=== PATIENT | male | born 1945 | race African-American/Black ===

== ENCOUNTER 2022-08-30 11:43 | Inpatient (IN) | payer MEDICARE, SELFPAY ==
[~2022-08-30 11:43] MED LIST: Iopamidol-370 76% 500 ML MDV (1 ML CHARGE) ONE
[2022-08-30 11:59] LABS: #Eosinphils 0.1 thou/uL (0.0-0.7); #Monocytes 0.4 thou/uL (0.11-0.59); #Neutrophils 2.6 thou/uL (1.40-6.50); %Basophils 0.4 % (0.0-1.0); %Eosinophils 1.9 % (0.0-10.0); %Lymphocytes 34.5 % (21.0-51.0); %Monocytes 7.6 % (0.0-10.0); %Neutrophils 55.4 % (42.0-75.0); Hemoglobin 13.1 g/dL (14.0-18.0); Mean Corpuscular HGB CONC 33.1 g/dL (32.0-36.0); Mean Corpuscular Hemoglobin 31.8 pg (27.0-31.0); Mean Corpuscular Volume 96.1 fl (78.0-98.0); Mean Platelet Volume 10.8 fL (7.4-10.4); Platelet Count 139 10x3/uL (130-400); RBC Distribution Width 13.2 % (11.5-14.5); Red Blood Cell (RBC) Count 4.12 mill/uL (4.70-6.10); White Blood Cell (WBC) Count 4.7 10x3/uL (4.8-10.8)
[2022-08-30 12:13] LABS: INR-International Normal Ratio 1.1; PTT 23.5 sec (22.9-36.1); Prothrombin Time 14.2 sec (12.0-14.7)
[2022-08-30 12:15] LABS: ALT (SGPT) 8 U/L (8-55); AST (SGOT) 16 U/L (5-34); Albumin 3.8 g/dL (3.4-4.8); Alkaline Phosphatase 77 U/L (40-110); Anion Gap 14 mmol/L (10-20); BUN (Urea Nitrogen) 13 mg/dL (8.4-25.7); Bilirubin, Total 0.5 mg/dL (0.2-1.2); Calc. Creatinine Clearance 0 mL/min (70-130); Carbon Dioxide 18 mmol/L (23-31); Chloride 110 mmol/L (98-107); Estimated GFR 45; Globulin 3.4 g/dL (2.4-3.5); Glucose 113 mg/dL (83-110); Potassium 4.2 mmol/L (3.5-5.1); Protein, Total 7.2 g/dL (5.8-8.1); Sodium 138 mmol/L (136-145)
[2022-08-30] MEDS ORDERED: Ondansetron ODT 4 MG TAB PO PRN (13:00)
[2022-08-30] MEDS ORDERED: Acetaminophen 325 MG TAB PO PRN (13:00)
[2022-08-30] MEDS ORDERED: Acetaminophen 650 MG Suppository PR PRN (13:00)
[2022-08-30] MEDS ORDERED: Ondansetron PF 4 MG/2 ML Vial IVP PRN (13:00)
[2022-08-30] MEDS ORDERED: hydrALAZINE 20 MG/ML VIAL SLOW IVP PRN (13:01)
[2022-08-30 15:11] VITALS: BMI 24.4
[2022-08-30] MEDS: Sodium Chloride 0.9% 1,000 ML IV SCH (21:30)
[2022-08-31] MEDS: Sodium Chloride 0.9% 1,000 ML IV SCH ×2 (05:51→14:08)
[2022-08-31 06:00] LABS: #Eosinphils 0.1 thou/uL (0.0-0.7); #Monocytes 0.5 thou/uL (0.11-0.59); #Neutrophils 2.4 thou/uL (1.40-6.50); %Basophils 0.4 % (0.0-1.0); %Eosinophils 2.5 % (0.0-10.0); %Lymphocytes 37.1 % (21.0-51.0); %Monocytes 10.1 % (0.0-10.0); %Neutrophils 49.7 % (42.0-75.0); Hemoglobin 12.2 g/dL (14.0-18.0); Mean Corpuscular HGB CONC 33.2 g/dL (32.0-36.0); Mean Corpuscular Hemoglobin 31.4 pg (27.0-31.0); Mean Corpuscular Volume 94.6 fl (78.0-98.0); Mean Platelet Volume 10.6 fL (7.4-10.4); Platelet Count 126 10x3/uL (130-400); Red Blood Cell (RBC) Count 3.89 mill/uL (4.70-6.10); White Blood Cell (WBC) Count 4.8 10x3/uL (4.8-10.8)
[2022-08-31 06:10] LABS: Hemoglobin A1c 5.5 % (4.0-6.0)
[2022-08-31 06:21] LABS: Anion Gap 13 mmol/L (10-20); BUN (Urea Nitrogen) 11 mg/dL (8.4-25.7); Calc. Creatinine Clearance 49 mL/min (70-130); Calcium 8.6 mg/dL (7.8-10.44); Carbon Dioxide 19 mmol/L (23-31); Cardiac Risk 3.4 (Less than 4.5); Chloride 111 mmol/L (98-107); Cholesterol 148 mg/dl (< 200 Desired); Estimated GFR 50; Glucose 93 mg/dL (83-110); HDL Cholesterol 44 mg/dL (>60 Neg Risk); LDL Cholesterol, Calculated 85 mg/dL; Potassium 3.8 mmol/L (3.5-5.1); Sodium 139 mmol/L (136-145); Triglycerides 94 mg/dL (Less than 150)
[2022-08-31 06:32] LABS: Bacteria/HPF None Seen HPF (None Seen); Bilirubin Negative (Negative); Blood, Urine 2+ (Negative); Clarity Clear (Clear); Glucose, Urine (Dipstick) Normal (Negative); Ketone, Urine Negative (Negative); Leukocyte 25 Leu/uL (Negative); Nitrite Negative (Negative); Protein, Urine (Dipstick) Negative (Neg-Trace); Specific Gravity, Urine 1.038 (1.002-1.036); Squamous Epithelial None Seen HPF (0-3); Urobilinogen Normal mg/dL (Less than 2); pH, Urine 5.5 (5.0-9.0)
[2022-08-31] MEDS: Aspirin 81 mg Enteric Coated Tablet PO SCH (09:00)
[2022-09-01] MEDS: Sodium Chloride 0.9% 1,000 ML IV SCH ×2 (00:14→11:03)
[2022-09-01] MEDS: Aspirin 81 mg Enteric Coated Tablet PO SCH (08:27)
[2022-09-01] MEDS ORDERED: Apixaban 2.5 MG TAB PO SCH (09:00)
[2022-09-01 12:34] VITALS: BP 159/87; TEMP 97.6
== END 2022-09-01 15:30 | disposition home or self-care (01) | DRG 65 ==
LOC: ERS 11:43 → 2SE 12:48 → OBSVTOIN 08-31 12:31
PROVIDERS: ADMIT Student in an Organized Health Care Education/Training Program; ATTEND Internal Medicine
DX: I63.511 Cerebral infarction due to unspecified occlusion or stenosis of right middle cerebral artery (principal); G81.94 Hemiplegia, unspecified affecting left nondominant side; N17.9 Acute kidney failure, unspecified; J90 Pleural effusion, not elsewhere classified; R29.707 NIHSS score 7; R47.1 Dysarthria and anarthria; R13.10 Dysphagia, unspecified; N18.30 Chronic kidney disease, stage 3 unspecified; R29.810 Facial weakness; Z79.899 Other long term (current) drug therapy; Z98.890 Other specified postprocedural states; Z85.46 Personal history of malignant neoplasm of prostate; Z86.718 Personal history of other venous thrombosis and embolism; Z79.01 Long term (current) use of anticoagulants
CPT/HCPCS: 36415; 70450; 70496; 70498; 70551; 71045; 80048; 80053; 80061; 81001; 83036; 84443; 84484; 85025; 85610; 85730; 93005; G0378; J1650; J7050; Q9967